=== PATIENT | female | born 1980 | race Caucasian/White ===

== ENCOUNTER → 2017-10-22 | Outpatient (CLI) | payer BC ==
--- NOTE | 2017-10-22 15:40 | DIAGNOSTIC IMAGING REPORT ---
L-SPINE MIN 4 VIEWS ROUTINE HISTORY: Pain CERVICALGIA,LOW BACK PAIN COMPARISON: None. FINDINGS: There is no fracture. No subluxation. Disc spaces are preserved. IMPRESSION: No fracture or subluxation within the lumbar spine. The above report was generated using voice recognition software. It may contain grammatical, syntax or spelling errors. Electronically signed by: Duane Blevins M.D. 10/22/2017 3:39 PM Dictated Date/Time: 10/22/2017 3:37 PM
--- NOTE | 2017-10-22 15:42 | DIAGNOSTIC IMAGING REPORT ---
C-SPINE ROUTINE 4 OR 5 VIEWS HISTORY: Pain CERVICALGIA,LOW BACK PAIN COMPARISON: None. FINDINGS: The cervical spine is visualized from C1 through the superior endplate of T1. There is no fracture. No subluxation. Evidence for an anterior fusion at C5-C6. Fusion appears to be solid and aligned anatomically. Neuroforamina are patent bilaterally. Prevertebral soft tissues and the atlantodens interval are intact. IMPRESSION: Negative study post C5-C6 anterior fusion. The above report was generated using voice recognition software. It may contain grammatical, syntax or spelling errors. Electronically signed by: Duane Blevins M.D. 10/22/2017 3:41 PM Dictated Date/Time: 10/22/2017 3:40 PM
== END | disposition home or self-care (01) ==
LOC: C.RAD1850 15:18
PROVIDERS: ATTEND Nurse Practitioner Family
DX: M54.2 Cervicalgia (principal); M54.5 Low back pain; Z98.1 Arthrodesis status

== ENCOUNTER → 2017-12-15 | Outpatient (CLI) | payer BC ==
--- NOTE | 2017-12-15 11:59 | DIAGNOSTIC IMAGING REPORT ---
PELVIC ULTRASOUND, TRANSABDOMINAL HISTORY: EGG retrievable. Assess for the presence of ovaries. COMPARISON: None. FINDINGS: Uterus: Surgically absent. Right ovary: 2.7 x 2.4 x 1.7 cm. Normal color flow within the right ovary. A few subcentimeter follicles/cysts. Left ovary: 3.1 x 2.3 x 1.7 cm. This also contains a few small follicles/cysts. There is a 8.4 x 7.4 x 4.0 cm cyst within the left adnexa containing a septation. This abuts and may be within the left ovary. Miscellaneous:No pelvic free fluid. IMPRESSION: 1. Prior hysterectomy. 2. Normal right ovary. 3. There is an 8.4 x 7.4 x 4.0 cm septated cyst within the left adnexa containing a septation. This abuts and may be within the normal-appearing left ovary. This could be pathologic given its size. However, no soft tissue masses identified. 6-8 week pelvic ultrasound follow-up is recommended to ensure resolution. Electronically signed by: Javier Celaya M.D. 12/15/2017 11:58 AM Dictated Date/Time: 12/15/2017 11:54 AM
== END | disposition home or self-care (01) ==
LOC: C.ULTR 10:57
PROVIDERS: ATTEND Nurse Practitioner Family
DX: Z31.89 Encounter for other procreative management (principal); Z90.710 Acquired absence of both cervix and uterus; R93.8 Abnormal findings on diagnostic imaging of other specified body structures

== ENCOUNTER → 2018-05-24 | Outpatient (CLI) | payer BC | END | disposition home or self-care (01) | LOC: C.RDSM 13:12 | PROVIDERS: ATTEND Family Medicine Sports Medicine | DX: M79.674 Pain in right toe(s) (principal); M21.611 Bunion of right foot ==